=== PATIENT | female | born 1985 | race African-American/Black ===

== ENCOUNTER 2018-10-20 04:57 | Inpatient (IN) ==
[2018-10-20] MEDS ORDERED: ONDANSETRON 4 MG/2 ML VIAL IV PRN (05:11)
[2018-10-20] MEDS ORDERED: OXYTOCIN/LR 20 UNIT/1,000 ML BAG IV SCH (05:30)
[2018-10-20 05:53] LABS: Basophils % 0.1 % (0.0-0.8); Eosinophils # 0.3 10*3/uL (0.0-0.87); Eosinophils % 2.9 % (0.00-10.9); Hematocrit 31.4 VOL% (35.7-47.0); Hemoglobin 10.4 GM/DL (12.0-16.0); Immature Granulocytes % 0.6 %; Immature Granulocytes Absolute 0.06 #; Lymphocytes # 2.3 10*3/uL (1.4-4.0); Lymphocytes % 23.6 % (21.3-54.2); Mean Corpuscular HGB Conc 33.1 GM/DL (32-36); Mean Corpuscular Volume 96.9 FL (87-102); Mean Platelet Volume 10.4 FL (9.6-12.0); Monocytes % 9.2 % (1.7-12.7); Neutrophils % 63.6 % (38.7-73.9); Platelet Count 238 T/CUMM (130-400); Red Blood Count 3.24 MC/CUMM (3.8-5.5); Red Cell Distribution Width 12.4 % (9.3-17.3); White Blood Count 9.7 T/CUMM (4-12)
[2018-10-20] MEDS: LACTATED RINGERS 1,000 ML IV SCH ×2 (06:00→16:19)
[2018-10-20] MEDS ORDERED: BUTORPHANOL 1 MG/ML VIAL IV PRN (09:28)
[2018-10-20] MEDS ORDERED: diphenhydrAMINE 50 MG/1 ML VIAL IV PRN (11:33)
[2018-10-20] MEDS ORDERED: hydrOXYzine HCL 25 MG/1 ML VIAL IM PRN (11:33)
[2018-10-20] MEDS ORDERED: NALOXONE 0.4 MG/ML VIAL IV PRN (11:33)
[2018-10-20] MEDS ORDERED: ePHEDrine 50 MG/ML AMP IV PRN (11:33)
[2018-10-20] MEDS ORDERED: PROMETHAZINE 25 MG/1 ML VIAL IM ONE (11:33)
[2018-10-20] MEDS ORDERED: LACTATED RINGERS 1,000 ML IV ONE (11:35)
[2018-10-20] MEDS ORDERED: FAMOTIDINE 20 MG/2 ML VIAL IV ONE (11:35)
[2018-10-20] MEDS ORDERED: CITRIC ACID/SODIUM CITRATE 30 ML UDCUP PO ONE (11:35)
[2018-10-20] MEDS ORDERED: fentaNYL 2 MCG/ROPIV 0.2% EPID 100 ML EPIDURAL SCH (12:00)
[2018-10-20 14:29] LABS: Apearance,Urine CLEAR (Clear); Bilirubin,Urine Negative (Negative); Blood, Urine Negative (Negative); Glucose,Urine (UA) Negative (Negative); Ketones,Urine 5 mg/dL (Negative); Mucus,Urine Occasional /LPF (Occasional); Nitrite,Urine Negative (Negative); Protein,Urine Negative; RBC,Urine <1 /HPF (0-4); Urine Color Straw (Yellow); Urine Specific Gravity 1.006 (1.001-1.035); Urine Urobilinogen < 2.0 EU/DL (0.2-1.0); WBC,Urine <1 /HPF (0-6)
[2018-10-20] MEDS ORDERED: OXYTOCIN/LR 0 UNIT/0 ML BAG IV ONE (15:01)
[2018-10-20] MEDS ORDERED: METHYLERGONOVINE 0.2 MG/1 ML AMP ONE (15:02)
[2018-10-20] MEDS ORDERED: OXYTOCIN 10 UNIT/ML VIAL ONE (15:02)
[2018-10-20] MEDS ORDERED: miSOPROStol 200 MCG TABLET ONE (15:02)
[2018-10-20] MEDS ORDERED: CARBOPROST TROMETHAMINE 250 MCG/ML AMP IM ONE (15:03)
[2018-10-20] MEDS ORDERED: LIDOCAINE 1% 50 ML VIAL ONE (15:03)
[2018-10-20] MEDS ORDERED: ACETAMINOPHEN 325 MG TABLET PO PRN (19:15)
[2018-10-20] MEDS ORDERED: RHO(D) IMMUNE GLOBULIN 300 MCG SYRINGE IM ONE (19:15)
[2018-10-20] MEDS ORDERED: BENZOCAINE 20%/MENTHOL 0.5% SPRAY 56 GM CAN TOP PRN (19:15)
[2018-10-20] MEDS ORDERED: WITCH HAZEL PADS 100/JAR TOP PRN (19:15)
[2018-10-20] MEDS ORDERED: MEASLES/MUMPS/RUBELLA VACCINE 0.5 ML VIAL SUBCUT ONE (19:15)
[2018-10-20] MEDS ORDERED: DIPH/TET/ACEL PERT BOOSTER VACCINE 0.5 ML VIAL IM ONE (19:15)
[2018-10-20] MEDS ORDERED: LANOLIN 50% CREAM 0.3 OZ TUBE TOP PRN (19:15)
[2018-10-20] MEDS ORDERED: OXYTOCIN/LR 20 UNIT/1,000 ML BAG IV ONE (19:15)
[2018-10-20] MEDS ORDERED: BISACODYL 10 MG SUPP RECTAL PRN (19:15)
[2018-10-20] MEDS ORDERED: oxyCODONE/ACETAMINOPHEN 5-325 MG TABLET PO PRN (19:15)
[2018-10-20] MEDS ORDERED: HYDROCORTISONE 2.5% RECTAL CREAM 30 GM TUBE TOP PRN (19:15)
[2018-10-20] MEDS: IBUPROFEN 800 MG TABLET PO PRN (21:18)
[2018-10-20] MEDS: FERROUS SULFATE 325 MG TABLET PO SCH (21:59)
[2018-10-20] MEDS: DOCUSATE SODIUM 100 MG CAPSULE PO SCH (21:59)
[2018-10-21 03:45] LABS: Basophils % 0.2 % (0.0-0.8); Eosinophils # 0.1 10*3/uL (0.0-0.87); Eosinophils % 0.8 % (0.00-10.9); Hematocrit 29.4 VOL% (35.7-47.0); Hemoglobin 9.8 GM/DL (12.0-16.0); Immature Granulocytes % 0.5 %; Immature Granulocytes Absolute 0.07 #; Lymphocytes % 13.8 % (21.3-54.2); Mean Corpuscular HGB Conc 33.3 GM/DL (32-36); Mean Corpuscular Volume 97.7 FL (87-102); Mean Platelet Volume 10.4 FL (9.6-12.0); Monocytes % 9.3 % (1.7-12.7); Neutrophils % 75.4 % (38.7-73.9); Platelet Count 205 T/CUMM (130-400); Red Blood Count 3.01 MC/CUMM (3.8-5.5); Red Cell Distribution Width 12.2 % (9.3-17.3); White Blood Count 14.5 T/CUMM (4-12)
[2018-10-21] MEDS ORDERED: [UNRECOGNIZED DRUG - REMARK] PO SCH (09:00)
[2018-10-21] MEDS: FERROUS SULFATE 325 MG TABLET PO SCH ×2 (09:02→20:19)
[2018-10-21] MEDS: DOCUSATE SODIUM 100 MG CAPSULE PO SCH ×2 (09:02→20:19)
[2018-10-21] MEDS: MULTIVITAMIN (PRENATAL) TABLET PO SCH (09:15)
[2018-10-21] MEDS: IBUPROFEN 800 MG TABLET PO PRN (20:19)
[2018-10-21] MEDS: oxyCODONE/ACETAMINOPHEN 5-325 MG TABLET PO PRN (21:47)
[2018-10-22] MEDS: IBUPROFEN 800 MG TABLET PO PRN (04:01)
[2018-10-22] MEDS: oxyCODONE/ACETAMINOPHEN 5-325 MG TABLET PO PRN (04:02)
[2018-10-22 07:32] VITALS: BP 121/70
[2018-10-22] MEDS: MULTIVITAMIN (PRENATAL) TABLET PO SCH (09:40)
[2018-10-22] MEDS: DOCUSATE SODIUM 100 MG CAPSULE PO SCH (09:41)
[2018-10-22] MEDS: FERROUS SULFATE 325 MG TABLET PO SCH (09:41)
== END 2018-10-22 12:40 | disposition home or self-care (01) | DRG 807 ==
LOC: N.LDOUT 04:57 → N.LD 04:59 → N.OB 21:25
PROVIDERS: ADMIT Obstetrics & Gynecology; ATTEND Obstetrics & Gynecology